=== PATIENT | male | born 1995 | race Caucasian/White ===

== ENCOUNTER 2019-06-09 17:40 | Emergency (ER) | payer SELFPAY ==
[~2019-06-09] VITALS: Ht 170.2 cm; Wt 63.5 kg
[2019-06-09] MEDS ORDERED: NKM (17:51)
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
[2019-06-09 18:03] VITALS: BP 102/56
--- NOTE | 2019-06-09 18:17 | NUR ---
ED Nurse Note: pt went down for x-ray.
--- NOTE | 2019-06-09 18:28 | NUR ---
ED Nurse Note: came back from x-ray in stable condition.
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
[2019-06-09] MEDS ORDERED: ROBAXIN500 MG PO (18:32)
[2019-06-09] MEDS ORDERED: NAPROXEN500 M2 ORAL (18:32)
[2019-06-09 18:36] VITALS: BP 102/56
--- NOTE | 2019-06-10 10:56 | Diagnostic Imaging Report ---
Indication: Chest pain chest trauma Comparison: None A single view chest radiograph was obtained. Findings: Cardiomediastinal appearance is within normal limits for age. The lungs are clear. Pulmonary vascularity is appropriate. The diaphragmatic contour is smooth and costophrenic angles are sharp. No pleural effusions are identified. The bones are unremarkable. Impression: No acute findings
--- NOTE | 2019-06-10 10:57 | Diagnostic Imaging Report ---
Indication: Back pain Comparison: None Findings: 3 views of the lumbar spine were obtained. No acute fracture or malalignment is identified. Vertebral body heights and disk spaces are well maintained. Posterior elements are unremarkable. Impression: No acute findings.
== END 2019-06-09 18:37 | disposition home or self-care (01) ==
LOC: EMR 17:56
DX: S30.0XXA Contusion of lower back and pelvis, initial encounter (principal); V23.4XXA Motorcycle driver injured in collision with car, pick-up truck or van in traffic accident, initial encounter; Y92.410 Unspecified street and highway as the place of occurrence of the external cause
CPT/HCPCS: 71045; 72020; 99284